=== PATIENT | male | born 1950 | race African-American/Black ===

== ENCOUNTER 2016-09-06 10:19 | Emergency (ER) | payer MEDICARE ==
[2016-09-06 09:49] LABS: BASOPHILS 0.4 %; BASOPHILS ABSOLUTE 0.01 10/3/uL (0.0-0.16); EOSINOPHILS 1.2 %; EOSINOPHILS ABSOLUTE 0.03 10/3/uL (0.0-0.53); HEMATOCRIT 37.4 % (40.0-51.0); LYMPHOCYTES 35.2 %; MEAN CORPUS HGB CONC 34.8 g/dL (32.0-36.0); MEAN CORPUSCULAR HEMOGLOB 32.1 pg (26.0-34.0); MEAN CORPUSCULAR VOLUME 92.3 fL (80-100); MEAN PLATELET VOLUME 9.6 fL (9.2-13.0); MONOCYTES 5.9 %; MONOCYTES ABSOLUTE 0.15 10/3/uL (0.21-1.20); NEUTROPHILS 57.3 %; NEUTROPHILS ABSOLUTE 1.47 10/3/uL (2.02-8.40); PLATELET COUNT 119 10/3/uL (150-400); RBC DISTRIBUTION WIDTH 12.9 % (12.0-16.0); RED CELL COUNT 4.05 10/6/uL (4.7-6.1); WHITE BLOOD CELLS 2.6 10/3/uL (4.5-10.5)
[2016-09-06 09:51] LABS: MANUAL DIFF NO %
[2016-09-06 09:57] LABS: INTERNATIONAL NORMAL RATI 1.2 UNITS (-); PARTIAL THROMBO TIME 24.9 SEC (22.5-37.2); PROTIME (NOT ORD) 15.1 SEC (12.0-14.5)
[2016-09-06 10:07] LABS: BUN (BLOOD UREA NITROGEN) 10 MG/DL (6-23); CALCIUM, SERUM 8.3 MG/DL (8.5-10.4); CHEST PAIN PROFILE TAT 0 Hrs 22 Mins; CHLORIDE, SERUM 105 MMOL/L (96-112); CO2 (CARBON DIOXIDE) 30 MMOL/L (24-34); CREATININE 1.24 MG/DL (0.70-1.30); GFR AFRICAN AMERICAN 69 ML/MIN (>=60); GFR NON AFRICAN AMERICAN 59 ML/MIN (>=60); GLUCOSE, SERUM 116 MG/DL (60-99); POTASSIUM, SERUM 3.9 MMOL/L (3.5-5.3); SODIUM, SERUM 140 MMOL/L (135-148); TROPONIN I <0.02 NG/ML (<0.05)
[2016-09-06 10:33] LABS: ASCORBIC ACID (UR NOT ORDER) 40 (NEG); BILIRUBIN, URINE NEGATIVE (NEG); ER URINALYSIS TAT 0 Hrs 18 Mins; KETONE, URINE TRACE MG/DL (NEG); LEUKOCYTE ESTERASE(NOT OR NEG (NEG); NITRITE (URINE) NEG (NEG); WBC (NOT ORDERED) (RFLEX) < 1 (0-5)
== END 2016-09-06 11:25 | disposition home or self-care (01) ==
LOC: ER 10:19
PROVIDERS: Emergency Medicine
DX: G93.40 Encephalopathy, unspecified (principal); G20 Parkinson's disease; I10 Essential (primary) hypertension; E11.9 Type 2 diabetes mellitus without complications; I48.91 Unspecified atrial fibrillation; E78.5 Hyperlipidemia, unspecified; Z88.8 Allergy status to other drugs, medicaments and biological substances
CPT/HCPCS: 70450; 80048; 81001; 82962; 83735; 84484; 85025; 85610; 85730; 93005; 99285